=== PATIENT | male | born 1975 | race Caucasian/White ===

== ENCOUNTER → 2020-02-07 10:37 | Outpatient (CLI) | payer MEDICARE | END | disposition home or self-care (01) | LOC: D.HCCARDIO 10:30 | PROVIDERS: ATTEND Internal Medicine Cardiovascular Disease | DX: I20.9 Angina pectoris, unspecified (principal) ==

== ENCOUNTER 2020-02-27 11:14 | Day surgery (SDC) | payer MEDICARE ==
[~2020-02-27] VITALS: Ht 172.7 cm; Wt 109.5 kg
--- NOTE | ~2020-02-27 | HEMODYNAMI ---
PATIENT:INA BAE MEDICAL RECORD: [id number] : 79 LOCATION:[facility] ADMISSION DATE: 02/27/20 Generatedon:02/27/202013:14 Patient name: INA BAE Patient #: [id number] SSN: [id number] : 1975 Date of study: 02/27/2020 Page: Of Hemodynamic Procedure Report Patient Data Patient Demographics Procedure consent was obtained First Name: INA Gender: Male Last Name: CATALINO : 1975 Middle Initial: P Age: 44 year(s) Patient #: [id number] Race: SSN: [id number] Additional ID: [id number] Contact details [address]: [address] [place] [address] State: [place] City: [place] Zip code: [address] Past Medical History Allergies Allergen Reaction Date Comments Reported Other allergy 02/27/2020 PCN, Erythromycin Admission Admission Data Admission Date: 02/27/2020 Admission Time: 11:14 Arrival Date: 02/27/2020 Arrival Time: 13:00 Admit Source: Other Insurance Payor: Medicare [facility] #: [id number] Procedure Procedure Types Cath Procedure Diagnostic Procedure LHC LHC w/Coronaries Procedure Description Procedure Date Procedure Date: 02/27/2020 Procedure Start Time: 13:02 Procedure End Time: 13:10 Procedure Staff Name Function Clemente Melgar MD Performing Physician Paulina Saleem RT Scrub Frantz Jama RN Nurse Columba Leon RT Monitor Procedure Data Cath Procedure Fluoroscopy Diagnostic fluoroscopy Total fluoroscopy Time: 0.9 time: 0.9 min min Diagnostic fluoroscopy Total fluoroscopy dose: 360 dose: 360 mGy mGy Contrast Material Contrast Material Type Amount (ml) Isovue 370 43 Entry Location Entry Primary Successful Side Size Upsize Upsize Entry Closure Succes sful Closure Location (Fr) 1 (Fr) 2 (Fr) Remarks Device Remarks Femoral Right 5 Fr Exoseal artery Estimated blood loss: 10 ml Diagnostic catheters Device Type Used For End Catheter Placement MULTIPACK JL 4.0 5Fr Procedure catheter MULTIPACK 3DRC 5Fr Procedure catheter MULTIPACK Pigtail 5 Fr Ventriculography catheter Procedure Complications No complications Procedure Medications Medication Administration Route Dosage Oxygen etCO2 Nasal cannula 2 l/min Lidocaine 2% added to field 20 Heparin Flush Bag added to field 2 bags (1000units/500ml NS) 0.9% NaCl I.V. 100 ml/hr Radial Cocktail added to field 1 syringe (Verapamil 2mg/Nitro 400mcg/Heparin 1500units) Versed I.V. 2 mg Fentanyl I.V. 100 mcg Versed I.V. 2 mg Fentanyl I.V. 100 mcg Versed I.V. 2 mg Hemodynamics Rest Heart Rate: 74 (bpm) Pressure Samples Time Site Value (mmHg) Purpose Heart Use Rate(bpm) 13:06 LV 80/9,2 Snapshot 91 Snapshots Pre Cath Intra NCS Post Cath Vital Signs Time Heart Resp SPO2 etCO2 NIBP (mmHg) Rhythm Pain Sedation Rate (ipm) (%) (mmHg) Status Level (bpm) 12:45:30 77 25 96 0 134/79(98) NSR 0 (11) 10(A) , No pain 12:49:50 84 17 97 30.7 118/72(101) NSR 0 (11) 10(A) , No pain 12:54:02 82 11 97 30 123/81(95) NSR 0 (11) 10(A) , No pain 12:58:16 78 19 97 36.7 117/82(94) NSR 0 (11) 10(A) , No pain 13:02:28 80 18 94 46.4 126/75(101) NSR 0 (11) 10(A) , No pain 13:06:38 72 12 94 0 115/64(81) NSR 0 (11) 9(A) , No pain 13:12:28 77 13 93 33.7 117/69(84) NSR 0 (11) 10(A) , No pain Medications Time Medication Route Dose Verified Delivered Reason Notes Effectiveness by by 12:48:28 Oxygen etCO2 2 l/min Clemente Landry used for Nasal [facility] Jama radio installer automobile cannula 12:48:34 Lidocaine 2% added 20ml Clemente Cornejo for local to vial [facility] Melgar anesthetic field MD [facility] 12:48:39 Heparin Flush added 2 bags Clemente Cornejo used for Bag to [facility] procedure (1000units/500ml field MD MCPHERSON NS) 12:48:48 0.9% NaCl I.V. 100 Clemente Landry Per ml/hr [facility] Jama RN physician 12:48:56 Radial Cocktail added 1 Clemente Cornejo for not (Verapamil to syringe [facility] vasodilation used 2mg/Nitro field MD MCPH[place] 400mcg/Heparin 1500units) 13:02:02 Versed I.V. 2 mg Clemente Landry for sedation [facility] Jama RN, MD 13:02:03 Fentanyl I.V. 100 mcg Clemente Landry for sedation [facility] Jama RN, MD 13:05:09 Versed I.V. 2 mg Clemente Cornejo for sedation [facility] Melgar MD, MD 13:05:13 Fentanyl I.V. 100 mcg Clemente Cornejo for sedation [facility] Melgar MD, MD 13:08:18 Versed I.V. 2 mg Clemente Cornejo for sedation [facility] Melgar MD, MD Procedure Log Time Note 12:26:25 Informed consent obtained and on chart 12:28:55 Admit Source: Other 12::01 Arrival Date: 02/27/2020 1:00:00 PM 12:29:27 Insurance Payor : Medicare 12:30:20 Diagnostic Cath Status : Elective 12:31:33 Procedure Status Elective Heart Cath (OP). 12:31:39 Frantz Jama RN sent for patient. Start room use. 12:31:39 Time tracking: Regular hours (M-F 7:00 - 5:00) 12:31:44 Plan of Care:Hemodynamics will remain stable., Cardiac rhythm will remain stable., Comfort level will be maintained., Respiratory function will remain adequate., Patient/ family verbilizes understanding of procedure., Procedure tolerated without complication., Recovers from procedure without complications.. 12:39:52 Patient received from Pre/Post Procedure Room to [facility] 2 Alert and oriented. Tansferred to table in Supine position. 12:39:54 Warm blankets applied, and yao hugger turned on for patient comfort. 12:39:54 Correct patient and procedure confirmed by team. 12:39:54 ECG and BP/O2 sat monitors applied to patient. 12:44:22 Vital chart was started 12:45:08 Baseline sample Acquired. 12:45:11 Full Disclosure recording started 12:46:34 H&P Date Dictated: 02/15/2020 Within 30 days and on chart., H&P Addendum completed by physician on day of procedure. (MUST COMPLETE FOR ALL OUTPATIENTS). 12:46:42 Pre-procedure instructions explained to patient. 12:46:49 Pre-op teaching completed and patient verbalized understanding. 12:46:52 Family in patients room. 12:46:55 Patient NPO since Midnight. 12:47:15 Patient allergic to Other allergyPCN, Erythromycin 12:47:18 Is the patient allergic to Iodine/contrast media? No. 12:47:20 Was the patient premedicated? Yes 12:47:22 Is patient on blood thinner?No 12:47:24 Patient diabetic? No. 12:47:28 Snore? Yes 12:47:29 Sleep apnea? No 12:47:35 Dentures? Yes partial 12:47:40 Patient pain scale 0/10 ?. 12:47:51 IV patent on arrival in left forearm with 0.9% NaCl at [facility]. 12:47:56 Lab results completed and on chart. 12:48:28 Oxygen 2 l/min etCO2 Nasal cannula was administered by Frantz Jama RN; used for procedure; Verbal order read back and verified. 12:48:34 Lidocaine 2% 20ml vial added to field was administered by Clemente Melgar MD; for local anesthetic; Verbal order read back and verified. 12:48:39 Heparin Flush Bag (1000units/500ml NS) 2 bags added to field was administered by Clemente Melgar MD; used for procedure; Verbal order read back and verified. 12:48:48 0.9% NaCl 100 ml/hr I.V. was administered by Frantz Jama RN; Per physician; Verbal order read back and verified. 12:48:56 Radial Cocktail (Verapamil 2mg/Nitro 400mcg/Heparin 1500units) 1 syringe added to field was administered by Clemente Melgar MD; for vasodilation; not used Verbal order read back and verified. 13:01:34 Right groin area was prepped with chlora-prep and draped in sterile fashion 13:01:36 Alarms reviewed by R. N. 13:01:36 Sharps counted by scrub and verified by R.N. 13:01:37 Physician arrived 13:01:38 --------ALL STOP TIME OUT------ 13:01:39 Final Timeout: patient, procedure, and site verified with staff and physician. All members of the team are in agreement. 13:01:42 Right groin site verified by team. 13:01:47 Fire Safety Assessment: A--An alcohol-based skin anteseptic being used preoperatively., C--Open oxygen or nitrous oxide is being used., D--An ESU, laser, or fiber-optic light is being used. 13:01:52 Physical assessment completed. ASA score P 2 - A patient with mild systemic disease as per Clemente Melgar MD. 13:01:56 2) 60-89 Mildly reduced kidney function, and other findings (as for stage 1) point to kidney disease. 13:01:58 Maximum allowable contrast dose (3.7 X eGFR X 0.75)206 ml. 13:02:02 Versed 2 mg I.V. was administered by Frantz Jama RN; for sedation; Verbal order read back and verified. 13:02:03 Fentanyl 100 mcg I.V. was administered by Frantz Jama RN; for sedation; Verbal order read back and verified. 13:02:03 Sedation plan: IV Moderate Sedation Medication:Versed, Fentanyl 13:02:07 Procedure started. 13:02:22 Local anesthetic to right femoral artery with Lidocaine 2% by Clemente Melgar MD.INITIAL ACCESS ONLY 13:02:30 A 5 Fr sheath was inserted into the Right Femoral artery 13:03:42 Use device set Femoral Dx 13:03:43 ACIST Syringe (50976) opened to sterile field. 13:03:44 Bag Decanter (2002S) opened to sterile field. 13:03:44 Medline Cath Pack ([id number]) opened to sterile field. 13:03:46 ACIST Hand Control (98251) opened to sterile field. 13:03:46 ACIST Manifold (95017) opened to sterile field. 13:03:47 DIAGNOSTIC Multipack 5Fr catheter set (VB0306) opened to sterile field. 13:03:49 EXOSEAL 5Fr (EX500) opened to sterile field. 13:03:51 SHEATH 5FR [place] (SMH860) opened to sterile field. 13:03:51 EMERALD Guide Wire (606-360) opened to sterile field. 13:03:52 Tegaderm 4 x 4 (1626W) opened to sterile field. 13:03:59 A MULTIPACK JL 4.0 5Fr catheter was advanced over the wire and used for Procedure. 13:04:14 LCA angiography performed. 13:04:16 Catheter removed. 13:04:24 A MULTIPACK 3DRC 5Fr catheter was advanced over the wire and used for Procedure. 13:05:09 Versed 2 mg I.V. was administered by Clemente Melgar MD; for sedation; Verbal order read back and verified. 13:05:09 RCA angiography performed. 13:05:12 Catheter removed. 13:05:13 Fentanyl 100 mcg I.V. was administered by Clemente Melgar MD; for sedation; Verbal order read back and verified. 13:05:28 A MULTIPACK Pigtail 5 Fr catheter was advanced over the wire and used for Ventriculography. 13:05:30 Zero performed for pressure channel P1 13:05:44 LV angiography performed. 13:06:39 Catheter removed. 13:07:03 Sheath removed intact; hemostasis achieved with Exoseal to the Right Femoral artery. 13:07:06 Procedure ended.(Physican Out) 13:07:31 Fluoroscopy time 00.90 minutes. 13:07:37 Fluoroscopy dose: 360 mGy 13:07:37 Flurop Dose total: 360 13:07:42 Dose Area Product 43629 mGy/cm. 13:07:50 Contrast amount:Isovue 370 43ml. 13:08:13 Maximum allowable dose exceeded? No. 13:08:15 Insertion/operative site no bleeding no hematoma. 13:08:18 Versed 2 mg I.V. was administered by Clemente Melgar MD; for sedation; Verbal order read back and verified. 13:08:23 Post-op/insertion site Right Femoral artery dressed using a 4 x 4 and Tegaderm. 13:08:56 Post-procedure physical assessment completed. ASA score P 2 - A patient with mild systemic disease as per Clemente Melgar MD. 13:08:59 Estimated blood loss: 10 ml 13:09:03 Post procedure instruction explained to patient.Patient verbalizes understanding. 13:09:15 Procedure Complication : No complications 13:09:20 Vital chart was stopped 13:09:29 LHC Findings: mild to moderate CAD (<70%) 13:09:55 See physician's report for complete and final results. 13:10:00 Report given to Pre/Post Procedure Room. 13:10:03 Patient transfered to Pre/Post Procedure Room with Stretcher. 13:10:06 Procedure ended. 13:10:06 Full Disclosure recording stopped 13:10:11 End room use (Document Last) Device Usage Item Name Manufacture Quantity Catalog Hospital Part Current Minimal L ot# / Number Charge Number Stock Stock Serial# Code ACIST Acist 1 65634 894372 642431 986174 20 Syringe Medical (01760) Systems Inc Bag Microtek 1 2001S 544720 98430 932607 5 Decanter Medical Inc. () Medline Medline 1 [id number] 040047 60834 554018 5 Cath Pack ([id number]) ACIST Hand Acist 1 72026 420892 079869 651658 5 Control Medical (29716) Systems Inc ACIST Acist 1 79204 976766 925836 698438 5 Manifold Medical (40832) Systems Inc DIAGNOSTIC Cardinal 1 LE8429 424518 71401 204059 30 Multipack Health 5Fr catheter set (HL4278) EXOSEAL 5Fr Cardinal 1 EX500 746233 684927 016683 10 (EX500) Health SHEATH 5FR Terumo 1 DTJ953 472645 516754 014660 5 [place] (AQA938) EMERALD Cardinal 1 502-455 996092 716235 349355 5 Guide Wire Health (502455) Tegaderm 4 3M 1 1626W 302222 139759 680157 5 x 4 (1626W) MULTIPACK Cardinal 1 940431 5 JL 4.0 5Fr Health catheter MULTIPACK Cardinal 1 259190 5 3DRC 5Fr Health catheter MULTIPACK Cardinal 1 066084 5 Pigtail 5 Health Fr catheter Signature Audit [place] Stage Time Signature Unsigned Intra-Procedure 02/27/2020 Columba Leon 1:13:08 PM RT(R) Intra-Procedure 02/27/2020 Frantz Jama RN 1:13:44 PM Intra-Procedure 02/27/2020 Clemente Vazquez 1:14:36 PM Julian MCPHERSON Signatures Performing Physician : Signature : Clemente Melgar MD Date : Time : Nurse : Buffie Jama RN Signature : Date : Time : Monitor : Columba Edward Signature : RT Date : Time : [address] [place] [address]
[2020-02-27] MEDS ORDERED: NORCO 7.5-3251 EACH PO (11:40)
[2020-02-27] MEDS ORDERED: CYMBALTA30 MG PO (11:41)
[2020-02-27] MEDS ORDERED: BACLOFEN20 M1 PO (11:41)
[2020-02-27] MEDS ORDERED: GABAPENTIN300 MG PO (11:42)
[2020-02-27] MEDS ORDERED: AMBIEN10 MG PO (11:43)
[2020-02-27] MEDS ORDERED: ZOCOR10 MG PO (11:43)
[2020-02-27] MEDS ORDERED: LISINOPRIL-HCT1 EAC8 PO (11:43)
[2020-02-27] MEDS ORDERED: PROVIGIL200 MG PO (11:44)
[2020-02-27] MEDS ORDERED: ROPINIROLE HCL2 MG PO (11:51)
[2020-02-27] MEDS ORDERED: FLOMAX0.4 MG PO (11:52)
[2020-02-27 11:53] VITALS: BP 124/79; Ht 172.7 cm; Wt 109.5 kg
[2020-02-27 12:41] LABS: BASOPHILS 0.2 % (0-2); EOSINOPHILS 3.9 % (0-7); HEMATOCRIT 41.7 % (42.0-54.0); HEMOGLOBIN 14.2 g/dL (13.5-17.5); IMMATURE GRANULOCYTES 0.1 % (0-5); MCHC 34.1 g/dL (31.0-37.0); MCV 88.2 fL (80.0-100.0); MEAN PLATELET VOLUME 10.4 fL (7.4-10.4); MONOCYTES 7.3 % (2-11); NEUTROPHILS 60.5 % (40-80); PLATELET COUNT 177 10x3/uL (130-400); RBC 4.73 10x6/uL (4.20-6.10); RDW 13.9 % (11.5-14.5); WBC 8.4 10x3/uL (4.8-10.8)
[2020-02-27 12:55] LABS: ALT (SGPT) 43 U/L (10-68); CALC OSMOLALITY 273 mosm/kg (275-300); CALCIUM 8.8 mg/dL (8.5-10.1); CARBON DIOXIDE 26.9 mmol/L (21.0-32.0); CHLORIDE - SERUM 104 mmol/L (98-107); CHOL - HDL RATIO 4.6 ratio (2.3-4.9); CHOLESTEROL, TOTAL 155 mg/dL (0-200); GLUCOSE 108 mg/dL (74-106); HDL CHOLESTEROL 34 mg/dL (32-96); LDL CHOLESTEROL 66 mg/dL (0-100); LDL-HDL RATIO 1.9 ratio (1.5-3.5); SODIUM 136 mmol/L (136-145); TRIGLYCERIDE 278 mg/dL (30-200); UREA NITROGEN 14 mg/dL (7-18); eGFR NON AFRICAN AMERICAN 87 mL/min (90-120)
[2020-02-27 12:57] LABS: POTASSIUM - SERUM 3.9 mmol/L (3.5-5.1)
--- NOTE | 2020-02-27 13:25 | NUR ---
PT RECEIVED VIA STRETCHER FROM [employer] WORK[employer] FOR RECOVERY. PT SLEEPING BUT VERBALLY AROUSABLE. IV PATENT INFUSING VIA ORDERS TO L ARM. PT PLACED ON CARDIAC MONITORS AND O2 VIA NC AT 2L. 5FR EXOCELE TO R GROIN, DRESSING CDI NO S/S HEMATOMA OR BLEEDING. PT INSTRUCTED TO KEEP HEAD ON PILLOW AND LEG STRAIGHT. HR 76, BP 120/78, RR 14, SAT 98. CALL LIGHT IN REACH, AT BS
--- NOTE | 2020-02-27 13:47 | NUR ---
PT SLEEPING, R GROIN SOFT, DRESSING CDI NO S/S HEMATOMA OR BLEEDING. VSS AT PRESENT. CALL LIGHT IN REACH, AT BS.
--- NOTE | 2020-02-27 14:30 | NUR ---
GROIN SOFT, DRESSING CDI NO S/S HEMATOMA NOTED. HOB ELEVATED, SANDWICH AND DRINK SERVED. VSS. CALL LIGHT IN REACH, AT BS
--- NOTE | 2020-02-27 15:05 | NUR ---
GROIN SOFT, DRESSING CDI NO S/S HEMATOMA. IV REMOVED W CATH INTACT, MONITORS REMOVED. DISCHARGE INSTRUCTIONS REVIEWED W PT, HE VERBALIZED UNDERSTANDING.
--- NOTE | 2020-02-27 15:25 | NUR ---
PT DISCHARGED VIA WC TO WAITING IN PRIVATE VEHICLE. PT HAD ALL BELONGINGS AND DISCHARGE PAPERWORK
--- NOTE | 2020-02-28 08:18 | OP ---
PATIENT NAME: INA BAE MEDICAL RECORD: [id number] :[birth year] LOCATION:[facility] ADMISSION DATE: SURGEON: RAINA MELCHOR MD DATE OF OPERATION: 02/27/2020 PROCEDURE: Left heart catheterization, selective coronary angiography, right femoral artery approach. CATHETERS: A 5-Belarusian sheath, 5/4 left and right Lynn, 5/4 pig. The procedure was well tolerated. The patient returned to anderson, sheath removed. ExoSeal device was placed. FINDINGS: Left ventriculography in 30-degree VACA view: Normal wall motion and normal systolic function. CORONARY ANATOMY: LEFT MAIN: Left main is free of disease. LAD: Free of disease in the diagonal system. CIRCUMFLEX: Codominant system, free of disease. RIGHT CORONARY ARTERY: Codominant system, free of disease. TRANSINT:[id number] Voice Confirmation ID: [id number] DOCUMENT ID: [id number] RAINA MELCHOR MD at 0818 CC: [id number] DICTATION DATE: 02/27/20 1310 C[employer] FEED CORN OPERATOR: 02/27/20 8204 [facility] [place] 02/27/20 [facility] [address] [id number]
== END 2020-02-27 15:15 | disposition home or self-care (01) ==
LOC: D.CATH 11:14
PROVIDERS: ATTEND Internal Medicine Interventional Cardiology
DX: R06.00 Dyspnea, unspecified (principal); R07.9 Chest pain, unspecified; I25.119 Atherosclerotic heart disease of native coronary artery with unspecified angina pectoris; E78.5 Hyperlipidemia, unspecified